=== PATIENT | female | born 1960 | race Caucasian/White ===

== ENCOUNTER → 2017-04-27 | Outpatient (CLI) | payer OTHER, MEDICAID | LOC: FCPNEURO 23:52 | PROVIDERS: ATTEND Psychiatry & Neurology Sleep Medicine | DX: G47.33 Obstructive sleep apnea (adult) (pediatric) (principal); G47.34 Idiopathic sleep related nonobstructive alveolar hypoventilation ==

== ENCOUNTER → 2017-05-25 | Outpatient (CLI) | payer OTHER, MEDICAID | LOC: FCPNEURO 21:30 | PROVIDERS: ATTEND Psychiatry & Neurology Sleep Medicine | DX: G47.33 Obstructive sleep apnea (adult) (pediatric) (principal); G47.34 Idiopathic sleep related nonobstructive alveolar hypoventilation; G47.61 Periodic limb movement disorder ==

== ENCOUNTER → 2018-08-11 | Outpatient (CLI) | payer OTHER, MEDICAID | LOC: FCPNEURO 22:37 | PROVIDERS: ATTEND Psychiatry & Neurology Sleep Medicine | DX: G47.33 Obstructive sleep apnea (adult) (pediatric) (principal); G47.61 Periodic limb movement disorder ==